=== PATIENT | male | born 1995 | race African-American/Black ===

== ENCOUNTER 2019-01-17 09:43 | Day surgery (SDC) | payer OTHER ==
[~2019-01-17] VITALS: Ht 180.3 cm; Wt 89.0 kg
--- NOTE | 2019-01-17 10:28 | REP ---
Right hand series: Four views. History: Trauma. Findings: Four views right hand demonstrate a comminuted angulated fracture of the distal diaphysis of the fifth metacarpal with 70 degrees of apex dorsal angulation and overlying soft tissue swelling. There are two tiny soft tissue opacities visible in the swollen overlying soft tissues which could be opaque debris. No other fracture is seen. Impression: Comminuted angulated boxer's fracture distal fifth metacarpal. 70 degrees of apex dorsal angulation. Electronically Signed by Wojciech Hollingsworth MD 01/17/2019 10:31 A
[2019-01-17] MEDS ORDERED: ceFAZolin SOD 1 GM in D5W MINI-BAG PLUS 50 ML IV ONE (14:00)
[2019-01-17 14:25] LABS: BASO # 0.1 10^3/uL (0.0-0.2); BASO % 0.5 % (0.0-1.0); EOS # 0.1 10^3/uL (0.0-0.5); EOS % 1.4 % (0.0-3.0); HEMATOCRIT 50.1 % (42.0-52.0); LYMPH # 3.3 10^3/uL (1.5-5.0); LYMPH % 34.1 % (24.0-44.0); MEAN CORPUSCULAR HEMOGLOBIN 28.6 pg (27.0-33.0); MEAN CORPUSCULAR HGB CONC 31.9 g/dl (32.0-36.5); MEAN CORPUSCULAR VOLUME 89.5 fl (80.0-96.0); MONO # 0.6 10^3/uL (0.0-0.8); MONO % 6.1 % (0.0-5.0); NEUTROPHILS # 5.6 10^3/uL (1.5-8.5); NEUTROPHILS % 57.3 % (36.0-66.0); PLATELET COUNT, AUTOMATED 308 10^3/uL (150-450); WHITE BLOOD COUNT 9.7 10^3/uL (4.0-10.0)
[2019-01-17 14:57] LABS: ALBUMIN 4.5 GM/DL (3.2-5.2); ALT/SGPT 32 U/L (12-78); BILIRUBIN,TOTAL 0.9 MG/DL (0.2-1.0); BLOOD UREA NITROGEN 19 MG/DL (7-18); CALCIUM LEVEL 9.9 MG/DL (8.5-10.1); CARBON DIOXIDE LEVEL 29 MEQ/L (21-32); CHLORIDE LEVEL 105 MEQ/L (98-107); CREATININE FOR GFR 1.26 MG/DL (0.70-1.30); GLOMERULAR FILTRATION RATE > 60.0 (>60); GLUCOSE, FASTING 84 MG/DL (70-100); POTASSIUM SERUM 4.4 MEQ/L (3.5-5.1); SODIUM LEVEL 139 MEQ/L (136-145); TOTAL PROTEIN 8.4 GM/DL (6.4-8.2)
[2019-01-17] MEDS ORDERED: ceFAZolin 1GM INJ (J0690 PER 500MG) As Ordered ONE (15:04)
[2019-01-17] MEDS ORDERED: NS 1,000 ML IV SCH (15:30)
[2019-01-17] MEDS ORDERED: KEFL500C17 PO (16:31)
[2019-01-17] MEDS ORDERED: NORC1TAB7 PO (16:32)
[2019-01-17] MEDS ORDERED: ceFAZolin 2 GM/D5W 50 ML IV BAG (J0690 PER 500MG) As Ordered ONE (17:38)
[2019-01-17] MEDS ORDERED: PROPOFOL 200 MG/20 ML VIAL As Ordered ONE (17:47)
[2019-01-17] MEDS ORDERED: dexameTHASONE 4 MG/ML 1ML VIAL (J1100) As Ordered ONE (17:47)
[2019-01-17] MEDS ORDERED: LIDOCAINE 2% INJ 100 MG/5 ML SDV (FOR ANES.) As Ordered ONE (17:47)
[2019-01-17] MEDS ORDERED: ONDANSETRON 4MG/2ML VIAL (J2405) As Ordered ONE (17:47)
[2019-01-17] MEDS ORDERED: KETOROLAC 60 MG/2 ML VIAL (J1885) As Ordered ONE (17:48)
[2019-01-17] MEDS ORDERED: MIDAZOLAM INJ 2 MG/2 ML VIAL (J2250) As Ordered ONE (17:48)
[2019-01-17] MEDS ORDERED: ACETAMINOPHEN 1000MG 100ML IV BTL (OFIRMEV) (J0131 PER 10MG) As Ordered ONE (17:48)
[2019-01-17] MEDS ORDERED: fentaNYL 250 MCG/5 ML INJECTION (J3010) As Ordered ONE (17:48)
[2019-01-17] MEDS ORDERED: BUPIVACAINE/EPIN 0.25% 30 ML VIAL As Ordered ONE (17:53)
[2019-01-17] MEDS ORDERED: BUPIVACAINE HCL 0.5% 30 ML VIAL As Ordered ONE (17:55)
[2019-01-17] MEDS ORDERED: ceFAZolin 2 GM/D5W 50 ML IV BAG (J0690 PER 500MG) IV ONE (18:06)
[2019-01-17] MEDS ORDERED: PERCOCET 5MG/325MG TAB As Ordered ONE (20:23)
[2019-01-17 20:35] VITALS: BP 126/64
[2019-01-17] MEDS ORDERED: PERCOCET 5MG/325MG TAB PO PRN (20:45)
[2019-01-17] MEDS ORDERED: LR 1,000 ML IV SCH (20:45)
[2019-01-17] MEDS ORDERED: ONDANSETRON 4MG/2ML VIAL (J2405) IV PRN (20:45)
--- NOTE | 2019-01-18 07:27 | REP ---
RIGHT HAND C-ARM: 01/17/2019. COMPARISON: Acute fracture films earlier this date. CLINICAL HISTORY: Distal metaphyseal fracture 5th metacarpal. FINDINGS: Three images from C-arm fluoroscopy provided to Dr. King of the orthopedic division using the mini C-arm are reviewed. I do not see any hardware. There has been a closed reduction of the distal 5th metacarpal fracture with the less dorsal apex angulation. Fluoroscopy time: 64 seconds. Electronically Signed by Yuval Chairez MD 01/18/2019 08:21 A
--- NOTE | 2019-01-18 09:14 | CR ---
DATE OF CONSULTATION: 01/17/2019 INDICATION: Right hand fracture. 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 He was helping move heavy furniture when his hand got pinned between the furniture and the wall. He thought that he just had an abrasion and he did not seek care until today, 24 hours later. When the ER physician called me for consultation, he mentioned that there was some bleeding. She was asked to carefully inspect the hand to see if there was a steady venous drainage and there was in fact some drainage consistent with a grade 1 open fracture and he promptly received IV antibiotics and was made sure he was up-to-date on tetanus. The patient was in moderate pain with his hand. For the patient's full past medical history, past surgical history, medications, allergies, social history and review of systems, please see the ER intake form. Of note he does smoke about a pack of cigarettes per day. PHYSICAL EXAMINATION: Reveals a well-appearing gentleman in no distress. Alert and oriented times three. Neurologic: Appropriate mood and affect. Cardiovascular: 2+ radial pulse: Nonlabored breathing. Skin: There is a 3 cm transverse laceration over the dorsal aspect of the right hand over the fifth metacarpal. There was a slow amount, but steady bloody drainage from that poke hole consistent with an open fracture. No gross contamination. Clinically, there is no significant malrotation. X-rays of the right hand from the ER revealed a comminuted, angulated fifth metacarpal neck fracture with significant displacement. ASSESSMENT/PLAN: 23-year-old gentleman with a grade 1 open right fifth metacarpal neck fracture. We discussed operative and nonoperative treatment. We discussed overall low infection rate with grade 1 open fractures in the hand and wrist; however, it was over 24 hours from the time of injury and the time from injury to IV antibiotics is the best predictor of developing a deep infection and therefore I felt it was best for him to proceed with irrigation and drainage followed by closed reduction. I discussed the case with my partner who is a hand specialist. We agreed there is no indication at this point for internal fixation or percutaneous fixation. The risk and benefits of surgery were discussed. Written informed consent was obtained. Please see the separate operative report.
--- NOTE | 2019-01-18 12:21 | RO ---
DATE OF PROCEDURE: 01/17/2019 PREOPERATIVE DIAGNOSES: Grade 1 open right 5th metacarpal neck fracture, displaced. POSTOPERATIVE DIAGNOSIS: Grade 1 open right 5th metacarpal neck fracture, displaced. PROCEDURE: 1. Irrigation and debridement right open 5th metacarpal fracture. 2. Closed reduction with manipulation and splinting of a displaced right 5thh metacarpal neck fracture. SURGEON: Dr. Fawad King. ANESTHESIA: General. IV FLUIDS: Lactated Ringer's. ESTIMATED BLOOD LOSS: Less than 5 mL. CLOSURE: Nylon. IMPLANTS: None. DESCRIPTION OF PROCEDURE: The patient was identified in preoperative holding area. The right arm marked by myself. He was brought to the operating room, placed supine on a well-padded operating room (OR) table. He received appropriate IV antibiotics within 1 hour of incision. Right arm was positioned on a hand table and then general anesthesia induced. All bony prominences well padded. The right hand was then prepped and draped in normal sterile fashion. Prior to incision time-out performed per hospital protocol. I first injected 0.5% Marcaine without epinephrine using 25-gauge needle into the fracture site per hematoma block technique and then into the surrounding soft tissues. A 1 cm longitudinal incision was made with a 15 blade from the open wound extending proximally. I then spread through the subcutaneous tissues down to the fracture site with a hemostat clamp. No gross contamination encountered. I then irrigated the incision and fracture site with 3 liters of normal saline. There was excellent hemostasis. The incision was then closed with a single #3-0 nylon in a horizontal mattress fashion. Sterile dressing was then applied and the drapes were taken down. All counts correct times two. The mini C-arm was then available where I performed a closed reduction with manipulation. Prior to splinting, I did obtain AP lateral and oblique views and the fracture was manually reduced. I was able to hold this in an anatomic reduction with manual pressure but it was highly unstable. The patient was placed an ulnar gutter splint with the wrist extended and metacarpophalangeal (MCP) joint flexed. The fracture reduction was easily lost but also regained without palpation and manual pressure. I then applied a mold to the splint and after the splint had set, there was significantly improved alignment on the lateral view. Mild angulation on the AP views so then the reduction was performed again, and then on the final AP view excellent alignment on AP view. Improved alignment of the lateral view. He was then awoken from general anesthesia, transferred to postanesthesia care unit (PACU) in stable condition. He will be discharged on Keflex for antibiotic prophylaxis and was encouraged pre-operatively to stop smoking at this impacts his infection rate and fracture union rate. The patient will followup in approximately 9 days for a skin check, suture removal and repeat x-rays and those images will be reviewed with our hand specialist.
== END 2019-01-17 20:30 | disposition home or self-care (01) ==
LOC: M ED 09:43 → M SDC 09:44 → M ED 17:07 → M SDC 20:30
PROVIDERS: ATTEND Orthopaedic Surgery
DX: S62.336B Displaced fracture of neck of fifth metacarpal bone, right hand, initial encounter for open fracture (principal); W23.0XXA Caught, crushed, jammed, or pinched between moving objects, initial encounter; Y92.89 Other specified places as the place of occurrence of the external cause; Y93.89 Activity, other specified; Y99.9 Unspecified external cause status; F17.210 Nicotine dependence, cigarettes, uncomplicated
CPT/HCPCS: 11010; 26605; 73120; 73130; 80053; 85025; 96365; 96366; 99284; J0131; J0690; J1100; J1885; J2250; J2405; J3010

== ENCOUNTER 2020-01-08 10:56 | Emergency (ER) | payer OTHER ==
[~2020-01-08] VITALS: Ht 175.3 cm; Wt 95.3 kg
[~2020-01-08 10:56] MED LIST: KEFL500C17 PO; NORC1TAB7 PO
[2020-01-08 10:57] VITALS: BP 155/84
[2020-01-08 13:27] LABS: CHLAMYDIA DNA AMPLIFICATION NEGATIVE (NEGATIVE); GC DNA AMPLIFICATION NEGATIVE (NEGATIVE)
[2020-01-09 10:44] LABS: HEPATITIS B SURFACE ANTIBODY POSITIVE (POSITIVE); HEPATITIS B SURFACE ANTIGEN NEGATIVE (NEGATIVE); HEPATITIS C VIRUS ABY INDEX 0.1 INDEX (<0.8); HIV 1&2 SCREEN CENTAUR NEGATIVE (NEGATIVE)
== END 2020-01-08 11:32 | disposition home or self-care (01) ==
LOC: M ED 10:56
DX: Z20.2 Contact with and (suspected) exposure to infections with a predominantly sexual mode of transmission (principal)

== ENCOUNTER 2020-12-26 18:03 | Emergency (ER) | payer OTHER ==
[~2020-12-26] VITALS: Ht 177.8 cm; Wt 93.6 kg
[2020-12-26 18:18] VITALS: BP 148/87
== END 2020-12-26 21:57 | disposition left against medical advice (07) ==
LOC: M ED 18:03
DX: Z53.21 Procedure and treatment not carried out due to patient leaving prior to being seen by health care provider (principal)